=== PATIENT | female | born 1995 | race Caucasian/White ===

== ENCOUNTER 2017-01-15 14:55 | Emergency (ER) | payer OTHER ==
[~2017-01-15 14:55] MED LIST: BACTRIM DS TABL1 TA1 PO; PREDNISONE PO
[2017-01-15 15:17] LABS: URINE SOURCE CLEAN CATCH
[2017-01-15 15:20] LABS: URINE APPEARANCE CLEAR; URINE BILIRUBIN NEG (NEG); URINE BLOOD 2+ (NEG); URINE COLOR YELLOW; URINE GLUCOSE NEG (NORM); URINE KETONE NEG (NEG); URINE LEUKOCYTE ESTERASE TRACE (NEG); URINE NITRATE POS (NEG); URINE PROTEIN TRACE (NEG); URINE UROBILINOGEN 0.2 MG/DL (NORM)
[2017-01-15 15:26] LABS: MICRO INDICATED? YES
[2017-01-15 15:27] LABS: CULTURE INDICATED? YES; URINE BACTERIA 1+ (NEG); URINE WBC 0-2 /[HPF] (0-5)
[2017-01-15 15:28] LABS: URINE MUCUS PRESENT; URINE SQUAMOUS EPITHELIAL CELL OCCAS /[HPF]
[2017-01-15] MEDS ORDERED: MACROBID100 M1 (15:58)
== END 2017-01-15 15:58 | disposition home or self-care (01) ==
LOC: SED 14:55
PROVIDERS: Nurse Practitioner Family
DX: N39.0 Urinary tract infection, site not specified (principal); F17.210 Nicotine dependence, cigarettes, uncomplicated
CPT/HCPCS: 81003; 84703; 87086; 87088; 87186; 99284